=== PATIENT | female | born 1985 | race Caucasian/White ===

== ENCOUNTER → 2017-07-09 | Outpatient (CLI) | payer BC ==
--- NOTE | 2017-07-09 18:17 | CT ---
EXAMINATION TYPE: CT abdomen pelvis wo con DATE OF EXAM: 07/09/2017 COMPARISON: NONE HISTORY: Right sided abdominal pain. CT DLP: 563.4 mGycm Automated exposure control for dose reduction was used. TECHNIQUE: Helical acquisition of images was performed from the lung bases through the pelvis. FINDINGS: Lung bases are clear. There is no pleural effusion. Liver spleen pancreas gallbladder appear normal. Bile ducts are not dilated. There is no adrenal mass. Kidneys have normal size. There is mild fat stranding around the right kidn ey. There is probably a 1 cm cortical cyst on the medial right kidney. Right ureter does not appear d ilated. There is some fullness of the right intrarenal collecting system. There is no retroperitoneal adenopathy. There is no ascites. I see no intestinal wall thickening. The re are no dilated loops. Bladder distends smoothly. There is no evidence of a pelvic mass. There is n o sign of appendicitis. Appendix appears normal. I see no bony destructive process. IMPRESSION: THERE IS SOME FAT STRANDING AROUND THE RIGHT KIDNEY. RIGHT KIDNEY IS SLIGHTLY LARGER THAN THE LEFT. T HIS APPEARANCE COULD RELATE TO RECENTLY PASSED STONE. I DO NOT SEE A DEFINITE URETERAL CALCULUS. I WO ULD ALSO CONSIDER THE POSSIBILITY OF RIGHT-SIDED PYELONEPHRITIS.
== END | disposition home or self-care (01) ==
LOC: RADCTMAIN 17:36
PROVIDERS: ATTEND Family Medicine
DX: N28.89 Other specified disorders of kidney and ureter (principal); R10.31 Right lower quadrant pain
CPT/HCPCS: 74176

== ENCOUNTER → 2018-10-29 | Outpatient (CLI) | payer BC ==
--- NOTE | 2018-10-30 16:49 | MR ---
EXAMINATION TYPE: MR brain wo/w con DATE OF EXAM: 10/29/2018 COMPARISON: HISTORY: Intracranial and intraspinal phlebitis, 6 month f/u after stroke TECHNIQUE: Multiplanar, multisequence images of the brain and brainstem is performed without and with IV contras t, utilizing 7.5 mL intravenous Gadavist . FINDINGS: There is a linear 3 x 1 cm area of mixed signal involving the cortex and white matter left posterior frontal lobe. contrast images show linear area of enhancement consistent with prominent cer ebral vein in the left posterior frontal lobe.: There is no mass effect. There is no midline shift. Ventricles have fairly normal size. Corpus callosum appears normal. Brainstem is intact. Cerebellum appears normal. There is normal contr ast opacification of the venous sinuses. There is arterial flow demonstrated in the anterior middle a nd posterior cerebral arteries. Sella turcica appears normal. IMPRESSION: Linear lesion left posterior frontal lobe with features of vascular malformation and varix. Minimal h emosiderin consistent with old hemorrhage. No significant encephalomalacia. No acute intracranial abn ormality. Comparison with old exam would be helpful.
== END | disposition home or self-care (01) ==
LOC: RADMRIMAIN 15:49
PROVIDERS: ATTEND Physician Assistant
DX: Q27.9 Congenital malformation of peripheral vascular system, unspecified (principal); I86.8 Varicose veins of other specified sites
CPT/HCPCS: 70553; A9585

== ENCOUNTER → 2019-07-06 | Outpatient (CLI) | payer BC ==
[2019-07-06 17:34] LABS: Basophils % (A) 0 %; Eosinophils # (A) 0.1 k/uL (0-0.7); Eosinophils % (A) 2 %; HCT 44.6 % (34.0-46.0); HGB 14.9 gm/dL (11.4-16.0); Lymphocytes # (A) 1.7 k/uL (1.0-4.8); Lymphocytes % (A) 30 %; MCH 30.7 pg (25.0-35.0); MCHC 33.4 g/dL (31.0-37.0); Mean Platelet Volume 7.8; Monocytes # (A) 0.4 k/uL (0-1.0); Monocytes % (A) 7 %; Neutrophils # (A) 3.1 k/uL (1.3-7.7); Neutrophils % (A) 57 %; Platelet Count 286 k/uL (150-450); RBC 4.85 m/uL (3.80-5.40); RDW 13.4 % (11.5-15.5); WBC 5.5 k/uL (3.8-10.6)
[2019-07-07 00:19] LABS: ALT 23 U/L (8-44); AST 20 U/L (13-35); African American GFR (CKD) 133.8 (60.0-200.0); Albumin/Globulin Ratio 2.47 (1.60-3.17); Alkaline Phosphatase 105 U/L (41-126); BUN/Creat Ratio 12.86 Ratio (12.00-20.00); Calcium 10.8 mg/dL (8.7-10.3); Carbon Dioxide 27.4 mmol/L (21.6-31.8); Chloride 105 mmol/L (96-109); Globulin 1.9 g/dL (1.6-3.3); Glucose 85 mg/dL (70-110); Non-African American GFR(CKD) 115.4 (60.0-200.0); Potassium 4.1 mmol/L (3.5-5.5); Sodium 140 mmol/L (135-145); Total Bilirubin 0.5 mg/dL (0.2-1.2); Total Protein 6.6 g/dL (6.2-8.2)
[2019-07-07 00:29] LABS: Folate, Serum 9.4 ng/mL
[2019-07-07 05:25] LABS: Hemoglobin A1C 4.7 % (4.0-6.0)
== END | disposition home or self-care (01) ==
LOC: LABWHC1 17:02
PROVIDERS: ATTEND Psychiatry & Neurology Neurology
DX: G62.89 Other specified polyneuropathies (principal); R53.83 Other fatigue; E05.00 Thyrotoxicosis with diffuse goiter without thyrotoxic crisis or storm; E08.610 Diabetes mellitus due to underlying condition with diabetic neuropathic arthropathy; A69.22 Other neurologic disorders in Lyme disease
CPT/HCPCS: 36415; 80053; 82607; 82746; 83036; 84443; 85025; 86038; 86618

== ENCOUNTER → 2020-06-26 | Outpatient (CLI) | payer BC ==
--- NOTE | 2020-06-27 13:28 | US ---
EXAMINATION TYPE: US thyroid st tissue head/neck DATE OF EXAM: 06/26/2020 COMPARISON: NONE CLINICAL HISTORY: L04.9 Acute lymphadenitis, unspecified. Acute lymphadenitis per order. Patient felt lump on right side of neck on 06/16/2020. Patient claims the area was no longer palpable a week later on 06/23/2020. Scanned right and left neck. -Hypoechoic area with hyperechoic center and vascular hilum seen at area of palpable within the right lateral neck measuring 1.8 x 1.1 x 0.5 cm. -Heterogeneous area with vascularity seen within right lateral neck measuring 0.9 x 1.0 x 0.4 cm. -Scanned left lateral neck for comparison. No abnormalities seen at this time. IMPRESSION: 1. Scattered lymph nodes within the neck, largest in the right lateral neck.
== END | disposition home or self-care (01) ==
LOC: RADUSWWP 16:54
PROVIDERS: ATTEND Family Medicine
DX: L04.9 Acute lymphadenitis, unspecified (principal)
CPT/HCPCS: 76536

== ENCOUNTER → 2020-08-24 | Outpatient (CLI) | payer BC ==
--- NOTE | 2020-08-25 05:58 | CT ---
Head CT with contrast. HISTORY: Headache and left hand numbness. COMPARISON: None. TECHNIQUE: Multiple axial images obtained from the skull base to vertex following uneventful IV contr ast administration. FINDINGS: Small focal area of encephalomalacia in the posterior left frontal lobe consistent with a remote infa rct. The ventricles, basal cisterns and sulci over the convexities are within normal limits and there is n o mass effect or shift of midline structures. There is no acute intraparenchymal extra-axial hemorrhage. Posterior fossa including the brainstem, fourth ventricle and cerebellar pontine angles appear normal . Following contrast administration there is no pathological enhancement. The intraorbital contents appear normal and symmetric. Visualized paranasal sinuses are well aerated. There is a small mucous retention cyst or polyp left maxillary sinus. 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 2. No acute bleed or mass effect. 3. No pathological enhancement throughout the brain parenchyma following IV contrast demonstration.
== END | disposition home or self-care (01) ==
LOC: RADCTMAIN 16:38
PROVIDERS: ATTEND Family Medicine
DX: I63.89 Other cerebral infarction (principal)
CPT/HCPCS: 70460; Q9967

== ENCOUNTER → 2021-06-01 | Outpatient (CLI) | payer BC ==
[2021-06-01 11:58] LABS: Basophils % (A) 0 %; Eosinophils # (A) 0.1 k/uL (0-0.7); Eosinophils % (A) 2 %; HCT 44.9 % (34.0-46.0); HGB 14.8 gm/dL (11.4-16.0); Lymphocytes # (A) 1.5 k/uL (1.0-4.8); Lymphocytes % (A) 26 %; MCHC 32.9 g/dL (31.0-37.0); MCV 91.2 fL (80.0-100.0); Mean Platelet Volume 7.6; Monocytes # (A) 0.3 k/uL (0-1.0); Monocytes % (A) 5 %; Neutrophils # (A) 3.7 k/uL (1.3-7.7); Neutrophils % (A) 66 %; Platelet Count 244 k/uL (150-450); RBC 4.92 m/uL (3.80-5.40); RDW 14.5 % (11.5-15.5); WBC 5.6 k/uL (3.8-10.6)
== END | disposition home or self-care (01) ==
LOC: LABPAT 11:44
PROVIDERS: ATTEND Obstetrics & Gynecology
DX: Z01.812 Encounter for preprocedural laboratory examination (principal); N92.0 Excessive and frequent menstruation with regular cycle
CPT/HCPCS: 85025

== ENCOUNTER 2021-06-04 09:52 | Day surgery (SDC) | payer BC ==
[2021-05-29 15:32] VITALS: BMI 29.1
[~2021-06-04 09:52] MED LIST: DEXAMETHASONE SOD PHOSPHATE 4 MG/ML 1 ML VIAL IV ONE; HYDROmorphone 0.5 MG/0.5 ML SYRINGE IVP PRN; LACTATED RINGERS 1,000 ML IV SCH; LIDOCAINE 1% (10MG/ML) FOR IV START INTRADERMA PRN; Pre Op ABX Message 1 EACH MISC MISCELLANE ONE; SCOPOLAMINE 1.5MG/72HR PATCH TRANSDERM ONE
[2021-06-04 10:14] VITALS: RESP 16
[2021-06-04] MEDS: ONDANSETRON 4 MG/2 ML VIAL IVP ONE ×2 (10:22→12:01)
[2021-06-04] MEDS ORDERED: HYDROmorphone (PF) 1 MG/ML ONE (10:50)
[2021-06-04] MEDS ORDERED: GLYCOPYRROLATE 0.2 MG/ML 2 ML VIAL ONE (10:50)
[2021-06-04] MEDS ORDERED: KETOROLAC 15 MG/ML 1 ML VIAL ONE (10:50)
[2021-06-04] MEDS ORDERED: ROCURONIUM 10 MG/ML (5 ML VIAL) IV ONE (10:50)
[2021-06-04] MEDS ORDERED: NEOSTIGMINE 1 MG/ML 10 ML VIAL ONE (10:50)
[2021-06-04] MEDS ORDERED: PROPOFOL 10 MG/ML 20 ML VIAL IV ONE (10:50)
[2021-06-04] MEDS ORDERED: SUCCINYLCHOLINE CHLORIDE 100 MG/5 ML SYR IV ONE (10:50)
[2021-06-04] MEDS ORDERED: fentaNYL (PF) 50 MCG/ML 2 ML AMP ONE (10:50)
[2021-06-04] MEDS ORDERED: MIDAZOLAM 2 MG/2 ML VIAL ONE (10:50)
[2021-06-04] MEDS ORDERED: LIDOCAINE 1% INJ 10MG/ML (20 ML MDV) ONE (10:50)
[2021-06-04] MEDS ORDERED: BUPIVACAINE (PF) 0.25% 30 ML VIAL SQ ONE ×2 (11:17)
--- NOTE | 2021-06-04 11:49 | P.OP ---
Date of Procedure: 06/04/21 Preoperative Diagnosis: Undesired fertility, menorrhagia Postoperative Diagnosis: Same, normal-appearing ovaries bilaterally, clear pelvis, endometrial cavity negative. Procedure(s) Performed: Laparoscopic tubal ligation with Filshie clips, hysteroscopy, Carmita endometrial ablation Surgeon: Jia Zavala Estimated Blood Loss (ml): 10 IV fluids (ml): 700 Urine output (ml): 20 Pathology: none sent Condition: stable Disposition: PACU Description of Procedure: Patient is brought to the operating suite where general anesthetic is administered without difficulty per the anesthesia staff. She's placed in the dorsal lithotomy position. Urine hCG is negative. Cervix, vagina, perineal body and abdomen are all prepped in the usual sterile fashion, draped as well. Examination under anesthesia reveals a small anteverted uterus, negative adnexa bilaterally. The appropriate timeout was performed to assure proper patient and procedural identification. Bladder is drained for approximately 20 mL of clear yellow urine. Weighted speculum was placed into the vagina. Anterior lip of the cervix is grasped with a double-tooth tenaculum. Uterus sounds to a depth of 10 cm in the anteverted position. Speculum was placed into the vagina. Anterior lip of the cervix is grasped with a double-tooth tenaculum and the acorn cannula is placed to aid in cervical manipulation. An incision is made below the umbilicus and the varies needle is placed. Place ment was checked with hanging drop technique. Abdomen is insufflated under low filling pressures of approximately 6 mmHg for a total of 3 L of CO2 gas. Veress needle is removed. Trochars placed. Camera is then placed into the trocar and the placement is noted to be atraumatic. Uterus is placed and anteverted position. Bilateral tubes and ovaries appear normal. Uterus is then placed back into the cavity. A second incision is made suprapubically and the second trocar is placed under direct visualization, entry is atraumatic. The right ovary is visualized in its entirety. The Filshie clip is placed in the isthmic portion with care to traverse the entire diameter of the tube into the mesal salpinx. Ovary appears normal. Same procedure is carried out contralaterally on the left tube, isthmic portion is utilized, clip through the entire diameter of the tube into the mesal salpinx. Left ovary also appears normal. Appendix, bowel, anterior posterior cul-de-sacs, and bilateral pelvic sidewalls all appear normal. The trochars are removed under direct visualization. CO2 gas was allowed to diffuse. Subcuticular stitches are placed on the wounds. They are injected with a total of 9 mL of quarter percent Marcaine to aid in postoperative analgesia. Dressings are placed. Cervix was systematically dilated with Hanks dilators. Hysteroscope was placed into the cavity. The cavity is insufflated with sterile saline and inspected. Bilateral ostia appear normal. No polyps, fibroids, or septa. Hysteroscope was removed. The cervix then sounds to 3 cm depth. The Carmita wand is placed and seated properly. The machine is enabled 2. The procedure is carried out for 120 seconds as per brusher hand's design. When completed, the wand is removed. Hysteroscope was placed in the cavity and it appears to be uniformly blanched. Instrumentation was removed from the cervix. All sponge needle and enhancement counts are correct. Patient is brought back to the recovery room in stable condition with a pulse of 88, 99% O2 saturation, blood pressure 114/81. She is given Toradol prior to leaving the operative suite. She will follow-up with me in the office in 2 weeks. Written instructions are provided.
[2021-06-04] MEDS ORDERED: MEPERIDINE 50 MG/ML SYRINGE IVP ONE (11:55)
[2021-06-04 12:03] VITALS: TEMP 97.6
[2021-06-04 13:34] VITALS: BP 103/63; PULSE 60
== END 2021-06-04 13:52 | disposition home or self-care (01) ==
LOC: OR 09:52
PROVIDERS: ATTEND Obstetrics & Gynecology
DX: Z30.2 Encounter for sterilization (principal); N92.0 Excessive and frequent menstruation with regular cycle; N94.6 Dysmenorrhea, unspecified; I69.951 Hemiplegia and hemiparesis following unspecified cerebrovascular disease affecting right dominant side; Z86.19 Personal history of other infectious and parasitic diseases; Z80.3 Family history of malignant neoplasm of breast; Z80.8 Family history of malignant neoplasm of other organs or systems
CPT/HCPCS: 81025; 58671; 58563; J2250; J1100; J2710; J2175; J2405; J2001; J3010; J1170; J1885; J0330; J2704; J1790

== ENCOUNTER 2021-06-09 12:48 | Emergency (ER) | payer BC ==
[2021-06-09 13:09] VITALS: RESP 18; TEMP 98.7
--- NOTE | 2021-06-09 13:15 | ED ---
General Adult HPI - General Chief complaint: Abdominal Pain Stated complaint: post surgical pain Time Seen by Provider: 06/09/21 13:12 Source: patient, RN notes reviewed, old records reviewed Mode of arrival: ambulatory Limitations: no limitations - History of Present Illness Initial comments: Vision is a 23-year-old female who presents in the department complaining of abdominal discomfort, as well as lower back pain. Her primary complaint is low back pain which she describes as a tightening, sharp sensation located in pelvic distribution over her lower back. She also describes possible constipation and some mild nonspecific abdominal discomfort over the last few days. Denies any fevers, chills, diarrhea, nausea, vomiting. Denies any chest pain, shortness of breath. Patient recently had a laparoscopic tubal ligation, hysteroscopy, endometrial ablation with Dr. Zavala last thursday. She states that since that time, she is been having these symptoms mildly. She was bedridden but has been trying to get up and move around. She states that the lower back pain Worse on Thursday. She did have a bowel movement on Thursday, otherwise though has not had any bowel movements, although has not been eating as much.. It was nonbloody. Endorses clear vaginal discharge as well as a little bit of blood, however this is been improving the further out from the surgery she gets.. Denies any urinary complaints. His no other acute complaints at this time. She called the on-call CONSULTING SME, Dr. Kong who recommended she come to the emergency dep artment for further evaluation. - Related Data Previous Rx's Medication Instructions Recorded Docusate [Colace] 100 mg PO DAILY PRN 14 Days #14 06/09/21 capsule Lidocaine 5% Patch [Lidoderm 5% 1 patch TOPICAL DAILY PRN 10 Days 06/09/21 Patch] #10 patch Methocarbamol [Robaxin-750] 750 mg PO BID PRN 14 Days #28 06/09/21 tablet Sennosides [Ex-Lax Chew] 15 mg PO DAILY PRN 14 Days #14 tab 06/09/21 Allergies Allergy/AdvReac Type Severity Reaction Status Date / Time No Known Allergies Allergy Verified 06/09/21 13:09 Review of Systems ROS Statement: Those systems with pertinent positive or pertinent negative responses have been documented in the HPI. Review of Systems: CONST: Denies fever EYES: Denies blurry vision ENT: Denies nasal congestion C/V: Denies Chest pain RESP: Denies shortness of breath GI: Endorses mild abdominal distention. : Denies dysuria SKIN: Denies rash. MSK: Lower back pain. NEURO: Denies headache ROS Other: All systems not noted in ROS Statement are negative. Past Medical History Past Medical History: CVA/TIA Additional Past Medical History / Comment(s): CVA-AGE 32 RESIDUAL WEAKNESS IN RIGHT HAND, MIGAINE HEADACHES, History of Any Multi-Drug Resistant Organisms: None Reported Past Surgical History: Tubal Ligation Additional Past Surgical History / Comment(s): ablation 06/04/21 Past Anesthesia/Blood Transfusion Reactions: No Reported Reaction Additional Past Anesthesia/Blood Transfusion Reaction / Comment(s): FIRST ANESTHETIC Past Psychological History: No Psychological Hx Reported Smoking Status: Never smoker Past Alcohol Use History: Occasional Past Drug Use History: None Reported - Past Family History Mother Family Medical History: No Reported History General Exam - General Exam Comments Initial Comments: HEAD: Normal with no signs of head trauma. EYES: PERRLA, EOMI, conjunctiva normal, no discharge. ENT: Hearing grossly intact, normal oropharynx. RESPIRATORY: Clear breath sounds bilaterally. No wheezes, rales, or rhonchi. C/V: Regular rate and rhythm. S1 and S2 auscultated, no edema, peripheral pulses 2+ and intact throughout ABD: Abdomen appears soft, relatively nondistended. There is no tenderness palpation in the abdomen. No rebound tenderness. No guarding. No peritoneal signs. EXT: Normal range of motion of all 4 shoulders without any obvious deformity. Patient does have some mild paralumbar spine tenderness palpation that extends across the lower back. No skin changes. No midline tenderness. Appears to be a muscle strain sprain or strain. SKIN: Bruising at the site of the recent trocar insertion for surgery. NEURO: Alert and oriented 4. No focal deficits. Limitations: no limitations Course Vital Signs 06/09/21 06/09/21 06/09/21 13:04 14:04 15:35 Temperature 98.7 F Pulse Rate 91 78 72 Respiratory 18 18 18 Rate Blood Pressure 152/89 122/80 122/76 O2 Sat by Pulse 96 100 100 Oximetry Medical Decision Making - Medical Decision Making Based on the patient's presentation and physical exam, I'm concerned for possible acute intra-abdominal issue, particularly with the recent surgery. She also may have back sprain versus constipation. We will obtain a relatively broad workup to rule out possible infection. We will also obtain urine studies, provide her with analgesia and fluid bolus for her lower back pain. Patient was in agreement this plan. I spoke with Dr. Kong over the phone who was also in agreement with this plan.Vital signs are stable upon arrival to the emergency department. Patient's laboratory studies are remarkable for normal lactic acid. Patient has a mildly decreased carbon dioxide level, patient's chloride is mildly elevated. These are not concerning. Remainder the labs are unremarkable. No signs of acute infection on laboratory study. CT imaging is remarkable for no acute process of the abdomen and pelvis. There is stool throughout her large intestine, however there does not appear to be an ileus or bowel obstruction. Patient's urinalysis reveals a small amount of blood but otherwise no signs of acute infection. No signs of kidney stones on CT imaging. On reevaluation, patient still having some lower back pain but denies any abdominal discomfort. She'll be dosed Robaxin, Toradol, lidocaine patch. I spoke with Dr. Hogue over the phone, and she was in agreement with me for discharge home. She'll be given stool softeners, as well as pain medications for her suspected lower back muscle strain. Patient follow-up with her CONSULTING SME Dr. Zavala as needed. Patient was in agreement this plan. On reevaluation at this time, patient's back pain is more manageable. We discussed rest, as well as icing as needed. Counseled the patient on muscle strains I will provide the patient with a prescription for Robaxin, lidocaine patch, docusate. I instructed the patient to follow up with their PCP in the next 3 days. I recommended she follow up with Dr. Zavala over the next 2-3 days. . I explained that the patient should return to the emergency department if they experience any worsening symptoms. Strict return precautions were discussed with the patient. The patient expressed understanding of these instructions. I answered all questions that the patient had. The patient was discharged home in fair condition with their prescriptions and follow up information. - Lab Data Result diagrams: 06/09/21 14:00 06/09/21 14:00 Lab Results 01/16/22 01/16/22 01/16/22 Range/Units 14:00 14:00 14:00 WBC 5.4 (3.8-10.6) k/uL RBC 4.81 (3.80-5.40) m/uL Hgb 14.6 (11.4-16.0) gm/dL Hct 43.7 (34.0-46.0) % MCV 90.9 (80.0-100.0) fL MCH 30.5 (25.0-35.0) pg MCHC 33.5 (31.0-37.0) g/dL RDW 14.7 (11.5-15.5) % Plt Count 247 (150-450) k/uL MPV 8.0 Neutrophils % 66 % Lymphocytes % 24 % Monocytes % 6 % Eosinophils % 1 % Basophils % 0 % Neutrophils # 3.6 (1.3-7.7) k/uL Lymphocytes # 1.3 (1.0-4.8) k/uL Monocytes # 0.3 (0-1.0) k/uL Eosinophils # 0.1 (0-0.7) k/uL Basophils # 0.0 (0-0.2) k/uL PT 10.3 (9.0-12.0) sec INR 1.0 (<1.2) APTT 22.5 (22.0-30.0) sec Sodium 139 (137-145) mmol/L Potassium 4.2 (3.5-5.1) mmol/L Chloride 109 H (98-107) mmol/L Carbon Dioxide 21 L (22-30) mmol/L Anion Gap 9 mmol/L BUN 8 (7-17) mg/dL Creatinine 0.56 (0.52-1.04) mg/dL Est GFR (CKD-EPI)AfAm >90 (>60 ml/min/1.73 sqM) Est GFR (CKD-EPI)NonAf >90 (>60 ml/min/1.73 sqM) Glucose 92 (74-99) mg/dL Plasma Lactic Acid Goran (0.7-2.0) mmol/L Calcium 10.9 H (8.4-10.2) mg/dL Total Bilirubin 0.8 (0.2-1.3) mg/dL AST 19 (14-36) U/L ALT 17 (4-34) U/L Alkaline Phosphatase 91 (38-126) U/L Total Protein 7.1 (6.3-8.2) g/dL Albumin 4.3 (3.5-5.0) g/dL Amylase 48 (30-110) U/L Lipase 39 (23-300) U/L Urine Color Urine Appearance (Clear) Urine pH (5.0-8.0) Ur Specific [place] (1.001-1.035) Urine Protein (Negative) Urine Glucose (UA) (Negative) Urine Ketones (Negative) Urine Blood (Negative) Urine Nitrite (Negative) Urine Bilirubin (Negative) Urine Urobilinogen (<2.0) mg/dL Ur Leukocyte Esterase (Negative) Urine RBC (0-5) /hpf Urine WBC (0-5) /hpf Ur Squamous Epith Cells (0-4) /hpf Urine Bacteria (None) /hpf 06/09/21 06/09/21 Range/Units 14:00 14:42 WBC (3.8-10.6) k/uL RBC (3.80-5.40) m/uL Hgb (11.4-16.0) gm/dL Hct (34.0-46.0) % MCV (80.0-100.0) fL MCH (25.0-35.0) pg MCHC (31.0-37.0) g/dL RDW (11.5-15.5) % Plt Count (150-450) k/uL MPV Neutrophils % % Lymphocytes % % Monocytes % % Eosinophils % % Basophils % % Neutrophils # (1.3-7.7) k/uL Lymphocytes # (1.0-4.8) k/uL Monocytes # (0-1.0) k/uL Eosinophils # (0-0.7) k/uL Basophils # (0-0.2) k/uL PT (9.0-12.0) sec INR (<1.2) APTT (22.0-30.0) sec Sodium (137-145) mmol/L Potassium (3.5-5.1) mmol/L Chloride (98-107) mmol/L Carbon Dioxide (22-30) mmol/L Anion Gap mmol/L BUN (7-17) mg/dL Creatinine (0.52-1.04) mg/dL Est GFR (CKD-EPI)AfAm (>60 ml/min/1.73 sqM) Est GFR (CKD-EPI)NonAf (>60 ml/min/1.73 sqM) Glucose (74-99) mg/dL Plasma Lactic Acid Goran 1.3 (0.7-2.0) mmol/L Calcium (8.4-10.2) mg/dL Total Bilirubin (0.2-1.3) mg/dL AST (14-36) U/L ALT (4-34) U/L Alkaline Phosphatase (38-126) U/L Total Protein (6.3-8.2) g/dL Albumin (3.5-5.0) g/dL Amylase (30-110) U/L Lipase (23-300) U/L Urine Color Light Yellow Urine Appearance Clear (Clear) Urine pH 6.0 (5.0-8.0) Ur Specific [place] >1.050 H (1.001-1.035) Urine Protein Trace H (Negative) Urine Glucose (UA) Negative (Negative) Urine Ketones Negative (Negative) Urine Blood Moderate H (Negative) Urine Nitrite Negative (Negative) Urine Bilirubin Negative (Negative) Urine Urobilinogen <2.0 (<2.0) mg/dL Ur Leukocyte Esterase Negative (Negative) Urine RBC 54 H (0-5) /hpf Urine WBC 5 (0-5) /hpf Ur Squamous Epith Cells 2 (0-4) /hpf Urine Bacteria Occasional H (None) /hpf Disposition Clinical Impression: Constipation, Muscle strain, Back pain, Post-op pain Disposition: HOME SELF-CARE Condition: Fair Instructions (If sedation given, give patient instructions): Constipation (ED), Muscle Strain (ED), Lower Back Exercises (ED) Prescriptions: Docusate [Colace] 100 mg PO DAILY PRN 14 Days #14 capsule PRN Reason: Constipation Sennosides [Ex-Lax Chew] 15 mg PO DAILY PRN 14 Days #14 tab PRN Reason: Constipation Lidocaine 5% Patch [Lidoderm 5% Patch] 1 patch TOPICAL DAILY PRN 10 Days #10 patch PRN Reason: Pain Methocarbamol [Robaxin-750] 750 mg PO BID PRN 14 Days #28 tablet PRN Reason: pain Is patient prescribed a controlled substance at d/c from ED?: No Referrals: Jose Angel Long MD [Primary Care Provider] - 1-2 days Jia Zavala MD [STAFF PHYSICIAN] - 1-2 days
[2021-06-09] MEDS ORDERED: MORPHINE SULFATE 4 MG/ML SYRINGE IV STA (13:26)
[2021-06-09] MEDS ORDERED: ONDANSETRON 4 MG/2 ML VIAL IVP STA (13:26)
[2021-06-09] MEDS ORDERED: diphenhydrAMINE 50 MG/ML 1 ML VIAL IVP STA (13:26)
[2021-06-09] MEDS ORDERED: SODIUM CHLORIDE 0.9% 1,000 ML IV STA (13:26)
[2021-06-09 14:23] LABS: Basophils % (A) 0 %; Eosinophils # (A) 0.1 k/uL (0-0.7); Eosinophils % (A) 1 %; HCT 43.7 % (34.0-46.0); HGB 14.6 gm/dL (11.4-16.0); Lymphocytes # (A) 1.3 k/uL (1.0-4.8); Lymphocytes % (A) 24 %; MCH 30.5 pg (25.0-35.0); MCHC 33.5 g/dL (31.0-37.0); MCV 90.9 fL (80.0-100.0); Monocytes # (A) 0.3 k/uL (0-1.0); Monocytes % (A) 6 %; Neutrophils # (A) 3.6 k/uL (1.3-7.7); Neutrophils % (A) 66 %; Platelet Count 247 k/uL (150-450); RBC 4.81 m/uL (3.80-5.40); RDW 14.7 % (11.5-15.5); WBC 5.4 k/uL (3.8-10.6)
[2021-06-09 14:42] LABS: ALT 17 U/L (4-34); AST 19 U/L (14-36); African American GFR (CKD) >90 (>60 ml/min/1.73 sqM); Albumin 4.3 g/dL (3.5-5.0); Alkaline Phosphatase 91 U/L (38-126); Amylase 48 U/L (30-110); Anion Gap 9 mmol/L; Blood Urea Nitrogen 8 mg/dL (7-17); Calcium 10.9 mg/dL (8.4-10.2); Carbon Dioxide 21 mmol/L (22-30); Chloride 109 mmol/L (98-107); Glucose 92 mg/dL (74-99); Lipase 39 U/L (23-300); Non-African American GFR(CKD) >90 (>60 ml/min/1.73 sqM); Partial Thromboplastin Time 22.5 sec (22.0-30.0); Potassium 4.2 mmol/L (3.5-5.1); Prothrombin Time 10.3 sec (9.0-12.0); Sodium 139 mmol/L (137-145); Total Bilirubin 0.8 mg/dL (0.2-1.3); Total Protein 7.1 g/dL (6.3-8.2)
--- NOTE | 2021-06-09 14:54 | CT ---
EXAMINATION TYPE: CT abdomen pelvis w con DATE OF EXAM: 06/09/2021 COMPARISON: CT abdomen pelvis 07/09/2017 HISTORY: low back pain post op tubal and ablation CT DLP: 1000.9 mGycm Automated exposure control for dose reduction was used. TECHNIQUE: Helical acquisition of images was performed from the lung bases through the pelvis. CONTRAST: Performed without Oral Contrast and with IV Contrast, patient injected with 100 mL of Isovue 300. FINDINGS: LUNG BASES: No significant abnormality is appreciated. LIVER/GB: Subcentimeter hypodensities of the liver are too small to characterize. No ductal dilatatio n. The gallbladder is unremarkable. PANCREAS: No significant abnormality is seen. SPLEEN: No significant abnormality is seen. ADRENALS: No significant abnormality is seen. KIDNEYS: 1.6 cm cyst of the medial right kidney. No hydronephrosis. No nephrolithiasis. FREE AIR: No free air is visualized. RETROPERITONEAL ADENOPATHY: None visualized REPRODUCTIVE ORGANS: Unremarkable appearance of the uterus and ovaries. Bilateral tubal ligation clip s. URINARY BLADDER: No significant abnormality is seen. PELVIC ADENOPATHY: None visualized. OSSEOUS STRUCTURES: No significant abnormality is seen. BOWEL: No significant abnormality is seen. OTHER: None IMPRESSION: NO ACUTE PROCESS OF THE ABDOMEN OR PELVIS.
[2021-06-09] MEDS ORDERED: KETOROLAC 15 MG/ML 1 ML VIAL IVP STA (15:18)
[2021-06-09] MEDS ORDERED: LIDOCAINE 5% PATCH TOPICAL STA (15:18)
[2021-06-09] MEDS ORDERED: methocarbamoL 750 MG TAB PO STA (15:18)
[2021-06-09 15:28] LABS: Appearance,Urine Clear (Clear); Bacteria,Urine Occasional /hpf; Bilirubin,Urine Negative (Negative); Blood,Urine Moderate (Negative); Color,Urine Light Yellow; Glucose,Urine (UA) Negative (Negative); Ketones,Urine Negative (Negative); Leukocyte Esterase,Urine Negative (Negative); Nitrite,Urine Negative (Negative); Protein,Urine Trace (Negative); RBC,Urine 54 /hpf (0-5); Squamous Epithelial Cell,Urine 2 /hpf (0-4); Urobilinogen,Urine <2.0 mg/dL (<2.0); WBC,Urine 5 /hpf (0-5)
[2021-06-09 15:31] LABS: Specific Gravity,Urine >1.050 (1.001-1.035)
[2021-06-09 15:36] VITALS: BP 122/76; PULSE 72
== END 2021-06-09 16:27 | disposition home or self-care (01) ==
LOC: EC 12:48
DX: T14.8XXA Other injury of unspecified body region, initial encounter (principal); G89.18 Other acute postprocedural pain; M54.50 Low back pain, unspecified; K59.00 Constipation, unspecified; X58.XXXA Exposure to other specified factors, initial encounter
CPT/HCPCS: 36415; 80053; 82150; 83605; 83690; 85025; 85610; 85730; 81001; 87040; 74177; 99284; 96374; 96375; 96361; J2270; J1200; J2405; J1885; Q9967

== ENCOUNTER → 2022-09-24 | Outpatient (CLI) | payer BC ==
--- NOTE | 2022-09-24 22:49 | US ---
EXAMINATION TYPE: US pelvis complete transvag DATE OF EXAM: 09/24/2022 COMPARISON: CT abdomen and pelvis 06/09/21 CLINICAL INDICATION: Female, 36 years old with history of L68.0 HIRSUTISM; Female hirsutism. Tubal li gation. . TECHNIQUE: Transvaginal (TV) and Transabdominal (TA) . Transabdominal sonographic images of the pel vis were acquired. Transvaginal sonographic images were performed per order. Date of LMP: 09/08/2022 EXAM MEASUREMENTS: Uterus: 9.1 x 5.8 x 4.7 cm. Measured transvaginally. TA measurements possibly falsely increased solo urement to 11.2 cm in length-enlarged. Endometrial Stripe: 0.66 cm Right Ovary: 3.1 x 1.8 x 2.0 cm Left Ovary: 4.4 x 3.1 x 3.0 cm 1. Uterus: Anteverted Subcentimeter anechoic areas seen in cervix. 2. Endometrium: Measures 0.66 cm. 3. Right Ovary: Appears wnl 4. Left Ovary: Complex area seen: 2.4 x 2.1 x 1.5 cm. 5. Bilateral Adnexa: Appear wnl 6. Posterior cul-de-sac: Appears wnl Tiny 5 mm nabothian cyst in the cervix. No free fluid. Right ovary is within normal limits. Left ovary has 2.4 x 1.5 x 2.1 cm thin-walled cyst with thin sep ta. IMPRESSION: No suspicious solid ovarian mass or neoplasm seen to account for patient's symptoms
== END | disposition home or self-care (01) ==
LOC: RADUSWWP 16:20
PROVIDERS: ATTEND Family Medicine
DX: L68.0 Hirsutism (principal)
CPT/HCPCS: 76830; 76856

== ENCOUNTER → 2022-11-03 | Outpatient (CLI) | payer BC ==
--- NOTE | 2022-11-03 15:42 | NM ---
EXAMINATION TYPE: NM parathyroid w/spect DATE OF EXAM: 11/03/2022 COMPARISON: NONE CLINICAL INDICATION: Female, 36 years old with history of E21.0; TECHNIQUE: Following administration of 23.6 mCi Tc99m Sestamibi. Anterior projection images of the neck and ches t were obtained 10 minutes and 3 hours post injection. SPECT images of the neck and chest were obtai reed and reconstructed in three axes. FINDINGS: Thyroid tracer washout: Delayed images demonstrate near-complete tracer washout from the thyroid. Parathyroid uptake: There is warm radiotracer accumulation seen on the delayed images within the uppe r pole of the right thyroid lobe. Normal uptake: There is physiological tracer uptake in the myocardi um, liver, salivary glands, and thyroid gland. IMPRESSION: There is warm radiotracer accumulation seen on the delayed images within the upper pole of the right thyroid lobe. Parathyroid adenoma is not excluded. Correlate clinically.
== END | disposition home or self-care (01) ==
LOC: RADNMMAIN 10:56
PROVIDERS: ATTEND Family Medicine
DX: E21.0 Primary hyperparathyroidism (principal)
CPT/HCPCS: 78071; A9500

== ENCOUNTER → 2022-11-10 | Outpatient (CLI) | payer BC ==
--- NOTE | 2022-11-12 12:36 | MR ---
EXAMINATION TYPE: MR neck wo/w con DATE OF EXAM: 11/10/2022 7:19 PM COMPARISON: Nuclear medicine scan 11/03/2022, MRI brain 10/29/2018, thyroid ultrasound 06/26/2020 CLINICAL INDICATION:Female, 36 years old with history of E21.0; High Calcium per Bloodwork, fatigue, dizziness, Hyperparathyroidism TECHNIQUE: Multi planar, multi sequence imaging was performed of the neck soft tissues. MR contrast: IV Contrast: 8 cc Gadavist FINDINGS: The glottis appears unremarkable. Several nonenlarged anterior chain lymph nodes are iden tified. There is no evidence to suggest a soft tissue mass. The cervical vertebral bodies have preserved heights and alignment. Multilevel disc desiccation and anterior osteophytosis are present. The cervical spinal cord demonstrates a normal appearance. IMPRESSION: When comparing with prior nuclear medicine scan no obvious correlate for finding. Consider dedicated thyroid ultrasound.
== END | disposition home or self-care (01) ==
LOC: RADMRIMAIN 17:31
PROVIDERS: ATTEND Family Medicine
DX: E21.0 Primary hyperparathyroidism (principal); R42 Dizziness and giddiness; R53.83 Other fatigue
CPT/HCPCS: 70543; A9585